=== PATIENT | male | born 1970 | race Caucasian/White ===

== ENCOUNTER → 2017-02-06 | Outpatient (CLI) | payer BC ==
[2017-02-06 09:57] LABS: HEMATOCRIT 39.2 % (37.9-51.0); HEMOGLOBIN 13.5 g/dL (13.5-17.0); HGB HCT DIFFERENCE 1.3; MEAN CORPUSCULAR HEMOGLOBIN 29.2 pg (27.0-33.4); MEAN CORPUSCULAR HGB CONC 34.4 g/dL (32.0-36.0); MEAN CORPUSCULAR VOLUME 85 fl (80-97); RED BLOOD COUNT 4.61 10^6/uL (4.35-5.55); RED CELL DISTRIBUTION WIDTH 13.3 % (11.5-14.0); WHITE BLOOD COUNT 5.4 10^3/uL (4.0-10.5)
[2017-02-06 10:27] LABS: ALANINE AMINOTRANSFERASE 67 U/L (21-72); ALBUMIN 4.2 g/dL (3.5-5.0); ALKALINE PHOSPHATASE 74 U/L (38-126); ANION GAP 14 (5-19); ASPARTATE AMINO TRANSFERASE 33 U/L (17-59); BILIRUBIN,DIRECT 0.4 mg/dL (0.0-0.4); BILIRUBIN,TOTAL 0.5 mg/dL (0.2-1.3); BLOOD UREA NITROGEN 12 mg/dL (7-20); CALCIUM 9.7 mg/dL (8.4-10.2); CARBON DIOXIDE 25 mmol/L (22-30); CHLORIDE 103 mmol/L (98-107); CREATININE RESULT 0.83 mg/dL (0.52-1.25); GLUCOSE 85 mg/dL (75-110); IRON 58.4 ug/dL (49-181); MAGNESIUM 1.9 mg/dL (1.6-2.3); POTASSIUM 4.6 mmol/L (3.6-5.0); SODIUM 142.3 mmol/L (137-145); TOTAL PROTEIN 6.9 g/dL (6.3-8.2)
[2017-02-07 07:32] LABS: VITAMIN D 25-HYDROXY 27.4 ng/mL (30.0-100.0)
== END ==
LOC: OD 08:04
PROVIDERS: ATTEND Specialist
DX: E83.50 Unspecified disorder of calcium metabolism (principal); K91.2 Postsurgical malabsorption, not elsewhere classified
CPT/HCPCS: 36415; 80053; 82306; 82607; 82746; 83540; 83735; 83970; 84207; 85027

== ENCOUNTER → 2018-05-31 | Outpatient (CLI) | payer BC ==
[2018-05-31 08:33] LABS: HEMOGLOBIN 13.7 g/dL (13.5-17.0); MEAN CORPUSCULAR HEMOGLOBIN 27.3 pg (27.0-33.4); MEAN CORPUSCULAR HGB CONC 34.1 g/dL (32.0-36.0); MEAN CORPUSCULAR VOLUME 80 fl (80-97); PLATELET COUNT 255 10^3/uL (150-450); RED BLOOD COUNT 4.99 10^6/uL (4.35-5.55); RED CELL DISTRIBUTION WIDTH 15.9 % (11.5-14.0); WHITE BLOOD COUNT 3.9 10^3/uL (4.0-10.5)
[2018-05-31 09:01] LABS: ALANINE AMINOTRANSFERASE 42 U/L (21-72); ALBUMIN 4.3 g/dL (3.5-5.0); ALKALINE PHOSPHATASE 88 U/L (38-126); ANION GAP 9 (5-19); ASPARTATE AMINO TRANSFERASE 35 U/L (17-59); BILIRUBIN,DIRECT 0.2 mg/dL (0.0-0.4); BILIRUBIN,TOTAL 0.5 mg/dL (0.2-1.3); BLOOD UREA NITROGEN 10 mg/dL (7-20); CALCIUM 9.3 mg/dL (8.4-10.2); CARBON DIOXIDE 29 mmol/L (22-30); CHLORIDE 103 mmol/L (98-107); CHOLESTEROL 195.05 mg/dL (0-200); GLUCOSE 92 mg/dL (75-110); IRON 56.5 ug/dL (49-181); POTASSIUM 4.7 mmol/L (3.6-5.0); SODIUM 141.3 mmol/L (137-145); TRIGLYCERIDES 153 mg/dL (<150)
[2018-05-31 09:12] LABS: DIRECT LDL 143 mg/dL (<100)
[2018-05-31 09:35] LABS: FERRITIN 8.31 ng/mL (17.9-464.0)
[2018-05-31 10:09] LABS: VLDL CHOLESTEROL 30.6 mg/dL (10-31)
== END ==
LOC: OD 07:53
PROVIDERS: ATTEND Physician Assistant Surgical
DX: R63.5 Abnormal weight gain (principal); E55.9 Vitamin D deficiency, unspecified; K91.2 Postsurgical malabsorption, not elsewhere classified
CPT/HCPCS: 36415; 80053; 80061; 82306; 82607; 82728; 82746; 83036; 83540; 83735; 83970; 84425; 84443; 85027

== ENCOUNTER → 2018-07-03 | Outpatient (CLI) | payer BC ==
[2018-07-03 08:34] LABS: HEMOGLOBIN 13.8 g/dL (13.5-17.0); MEAN CORPUSCULAR HEMOGLOBIN 28.8 pg (27.0-33.4); MEAN CORPUSCULAR HGB CONC 35.4 g/dL (32.0-36.0); MEAN CORPUSCULAR VOLUME 81 fl (80-97); PLATELET COUNT 271 10^3/uL (150-450); RED CELL DISTRIBUTION WIDTH 16.2 % (11.5-14.0); WHITE BLOOD COUNT 4.7 10^3/uL (4.0-10.5)
[2018-07-03 08:51] LABS: ALANINE AMINOTRANSFERASE 43 U/L (21-72); ALBUMIN 4.5 g/dL (3.5-5.0); ALKALINE PHOSPHATASE 80 U/L (38-126); ANION GAP 10 (5-19); ASPARTATE AMINO TRANSFERASE 28 U/L (17-59); BILIRUBIN,DIRECT 0.2 mg/dL (0.0-0.4); BILIRUBIN,TOTAL 0.4 mg/dL (0.2-1.3); BLOOD UREA NITROGEN 11 mg/dL (7-20); CALCIUM 9.6 mg/dL (8.4-10.2); CARBON DIOXIDE 27 mmol/L (22-30); CHLORIDE 104 mmol/L (98-107); GLUCOSE 98 mg/dL (75-110); IRON 47.8 ug/dL (49-181); POTASSIUM 4.5 mmol/L (3.6-5.0); SODIUM 141.2 mmol/L (137-145); TOTAL PROTEIN 7.2 g/dL (6.3-8.2)
[2018-07-03 10:13] LABS: FOLATE > 20.00 ng/mL (>2.76)
== END ==
LOC: OD 07:52
PROVIDERS: ATTEND Specialist
DX: E46 Unspecified protein-calorie malnutrition (principal); K91.2 Postsurgical malabsorption, not elsewhere classified; E55.9 Vitamin D deficiency, unspecified; E53.1 Pyridoxine deficiency
CPT/HCPCS: 36415; 80053; 82306; 82607; 82728; 82746; 83540; 83735; 83970; 84425; 84443; 85027

== ENCOUNTER → 2018-10-01 | Outpatient (CLI) | payer BC ==
[2018-10-01 08:08] LABS: HEMATOCRIT 38.3 % (37.9-51.0); HEMOGLOBIN 13.3 g/dL (13.5-17.0); MEAN CORPUSCULAR HEMOGLOBIN 28.9 pg (27.0-33.4); MEAN CORPUSCULAR HGB CONC 34.7 g/dL (32.0-36.0); MEAN CORPUSCULAR VOLUME 83 fl (80-97); PLATELET COUNT 275 10^3/uL (150-450); RED CELL DISTRIBUTION WIDTH 13.7 % (11.5-14.0); WHITE BLOOD COUNT 4.6 10^3/uL (4.0-10.5)
[2018-10-01 08:26] LABS: IRON 51.5 ug/dL (49-181)
[2018-10-01 09:00] LABS: FERRITIN 18.2 ng/mL (17.9-464.0)
== END ==
LOC: OD 07:26
PROVIDERS: ATTEND Physician Assistant Surgical
DX: D64.9 Anemia, unspecified (principal); E83.50 Unspecified disorder of calcium metabolism
CPT/HCPCS: 36415; 82306; 82330; 82728; 83540; 83970; 84443; 85027

== ENCOUNTER → 2019-06-12 | Outpatient (CLI) | payer BC ==
[2019-06-12 07:48] LABS: HEMATOCRIT 39.9 % (37.9-51.0); HEMOGLOBIN 13.9 g/dL (13.5-17.0); MEAN CORPUSCULAR HEMOGLOBIN 29.1 pg (27.0-33.4); MEAN CORPUSCULAR HGB CONC 34.9 g/dL (32.0-36.0); MEAN CORPUSCULAR VOLUME 83 fl (80-97); PLATELET COUNT 296 10^3/uL (150-450); RED BLOOD COUNT 4.79 10^6/uL (4.35-5.55); RED CELL DISTRIBUTION WIDTH 13.6 % (11.5-14.0); WHITE BLOOD COUNT 5.2 10^3/uL (4.0-10.5)
[2019-06-12 08:16] LABS: ALBUMIN 4.2 g/dL (3.5-5.0); ALKALINE PHOSPHATASE 79 U/L (38-126); ANION GAP 9 (5-19); ASPARTATE AMINO TRANSFERASE 28 U/L (17-59); BILIRUBIN,TOTAL 0.4 mg/dL (0.2-1.3); BLOOD UREA NITROGEN 11 mg/dL (7-20); CALCIUM 9.2 mg/dL (8.4-10.2); CARBON DIOXIDE 28 mmol/L (22-30); CHLORIDE 103 mmol/L (98-107); CHOLESTEROL 197.79 mg/dL (0-200); GLUCOSE 93 mg/dL (75-110); IRON 54.9 ug/dL (49-181); POTASSIUM 4.6 mmol/L (3.6-5.0); TOTAL PROTEIN 7.1 g/dL (6.3-8.2); TRIGLYCERIDES 162 mg/dL (<150)
[2019-06-12 08:27] LABS: DIRECT LDL 154 mg/dL (<100)
[2019-06-12 09:35] LABS: FOLATE > 20.00 ng/mL (>2.76); VLDL CHOLESTEROL 32.4 mg/dL (10-31)
[2019-06-12 09:36] LABS: CHOLESTEROL 197.79 mg/dL (0-200); DIRECT LDL 154 mg/dL (<100); TRIGLYCERIDES 162 mg/dL (<150); VLDL CHOLESTEROL 32.4 mg/dL (10-31)
== END ==
LOC: OD 07:16
PROVIDERS: ATTEND Specialist
DX: E78.5 Hyperlipidemia, unspecified (principal); K91.2 Postsurgical malabsorption, not elsewhere classified; R63.4 Abnormal weight loss; E55.9 Vitamin D deficiency, unspecified; R53.83 Other fatigue; R53.1 Weakness
CPT/HCPCS: 36415; 80053; 80061; 82306; 82607; 82728; 82746; 83036; 83540; 83735; 83970; 84425; 84443; 85027

== ENCOUNTER → 2019-12-25 | Outpatient (CLI) | payer BC ==
[2019-12-25 08:10] LABS: HEMATOCRIT 38.8 % (37.9-51.0); HEMOGLOBIN 13.2 g/dL (13.5-17.0); MEAN CORPUSCULAR HEMOGLOBIN 27.4 pg (27.0-33.4); MEAN CORPUSCULAR VOLUME 81 fl (80-97); PLATELET COUNT 340 10^3/uL (150-450); RED BLOOD COUNT 4.81 10^6/uL (4.35-5.55); RED CELL DISTRIBUTION WIDTH 14.1 % (11.5-14.0); WHITE BLOOD COUNT 5.3 10^3/uL (4.0-10.5)
[2019-12-25 08:20] LABS: ALBUMIN 4.3 g/dL (3.5-5.0); ALKALINE PHOSPHATASE 79 U/L (38-126); ANION GAP 10 (5-19); ASPARTATE AMINO TRANSFERASE 35 U/L (17-59); BILIRUBIN,DIRECT 0.3 mg/dL (0.0-0.4); BILIRUBIN,TOTAL 0.7 mg/dL (0.2-1.3); BLOOD UREA NITROGEN 11 mg/dL (7-20); CALCIUM 9.3 mg/dL (8.4-10.2); CARBON DIOXIDE 29 mmol/L (22-30); CHLORIDE 101 mmol/L (98-107); CHOLESTEROL 183.37 mg/dL (0-200); GLUCOSE 100 mg/dL (75-110); IRON 43.5 ug/dL (49-181); POTASSIUM 4.8 mmol/L (3.6-5.0); TOTAL PROTEIN 7.3 g/dL (6.3-8.2); TRIGLYCERIDES 213 mg/dL (<150)
[2019-12-25 08:31] LABS: DIRECT LDL 130 mg/dL (<100)
[2019-12-25 08:55] LABS: FERRITIN 7.79 ng/mL (17.9-464.0)
[2019-12-25 09:43] LABS: VLDL CHOLESTEROL 42.6 mg/dL (10-31)
== END ==
LOC: OD 07:32
PROVIDERS: ATTEND Specialist
DX: K91.2 Postsurgical malabsorption, not elsewhere classified (principal); E55.9 Vitamin D deficiency, unspecified; E53.1 Pyridoxine deficiency; R53.83 Other fatigue; R63.4 Abnormal weight loss; E53.8 Deficiency of other specified B group vitamins
CPT/HCPCS: 36415; 80053; 80061; 82306; 82607; 82728; 82746; 83036; 83540; 83735; 83970; 84425; 84443; 85027